=== PATIENT | male | born 1995 | race African-American/Black ===

== ENCOUNTER 2023-03-21 14:21 | Emergency (ER) | payer SELFPAY ==
[~2023-03-21 14:21] MED LIST: Iopamidol-370 76% 500 ML MDV (1 ML CHARGE) ONE
[2023-03-21 15:39] LABS: #Eosinphils 0.3 thou/uL (0.0-0.7); #Monocytes 0.7 thou/uL (0.11-0.59); %Basophils 0.2 % (0.0-1.0); %Eosinophils 2.4 % (0.0-10.0); %Lymphocytes 12.4 % (21.0-51.0); %Monocytes 5.7 % (0.0-10.0); Hematocrit 43.1 % (42.0-52.0); Hemoglobin 14.3 g/dL (14.0-18.0); Mean Corpuscular HGB CONC 33.2 g/dL (32.0-36.0); Mean Corpuscular Hemoglobin 31.7 pg (27.0-31.0); Mean Corpuscular Volume 95.6 fl (78.0-98.0); Mean Platelet Volume 9.1 fL (7.4-10.4); Platelet Count 259 10x3/uL (130-400); RBC Distribution Width 12.2 % (11.5-14.5); Red Blood Cell (RBC) Count 4.51 mill/uL (4.70-6.10); White Blood Cell (WBC) Count 12.6 10x3/uL (4.8-10.8)
[2023-03-21 16:44] LABS: Acetaminophen Less than 10 mcg/mL (10.0-30.0); Alcohol Less than 10.0 mg/dL (Less than 10); Lipase 17 U/L (8-78); Salicylate Less than 8.0 mg/dL (15.0-30.0)
[2023-03-21 16:45] LABS: ALT (SGPT) 18 U/L (8-55); AST (SGOT) 19 U/L (5-34); Albumin 4.1 g/dL (3.5-5.0); Alkaline Phosphatase 64 U/L (40-110); Anion Gap 14 mmol/L (10-20); BUN (Urea Nitrogen) 11 mg/dL (8.9-20.6); Bilirubin, Total 0.5 mg/dL (0.2-1.2); Calc. Creatinine Clearance 0 mL/min (70-130); Calcium 8.9 mg/dL (7.8-10.44); Carbon Dioxide 24 mmol/L (22-29); Chloride 103 mmol/L (98-107); Estimated GFR 103; Globulin 3.1 g/dL (2.4-3.5); Glucose 97 mg/dL (70-105); Protein, Total 7.2 g/dL (6.0-8.3); Sodium 137 mmol/L (136-145)
[2023-03-21 16:47] LABS: Troponin I 0.015 ng/mL (< 0.028)
[2023-03-21] MEDS ORDERED: fentaNYL 50 mcg/mL 1 mL Vial ONE (17:16)
== END 2023-03-21 20:43 ==
LOC: ERS 14:21
DX: S83.91XA Sprain of unspecified site of right knee, initial encounter (principal); S50.812A Abrasion of left forearm, initial encounter; S70.211A Abrasion, right hip, initial encounter; F17.210 Nicotine dependence, cigarettes, uncomplicated
CPT/HCPCS: 36415; 70450; 71260; 72125; 74177; 80053; 80307; 83690; 84443; 84484; 85025; 96361; 96374; J3010; Q9967

== ENCOUNTER 2025-02-27 14:20 | Emergency (ER) | payer SELFPAY | END 2025-02-27 16:22 | disposition home or self-care (01) | LOC: ERS 14:20 | DX: J01.90 Acute sinusitis, unspecified (principal); H66.92 Otitis media, unspecified, left ear; J45.909 Unspecified asthma, uncomplicated; F17.290 Nicotine dependence, other tobacco product, uncomplicated; Z79.899 Other long term (current) drug therapy | CPT/HCPCS: 87428; 99283 ==